=== PATIENT | female | born 1985 | race Caucasian/White ===

== ENCOUNTER 2019-05-10 03:33 | Inpatient (IN) | payer OTHER ==
[~2019-05-10] VITALS: Ht 152.4 cm; Wt 91.2 kg
[2019-05-10] MEDS ORDERED: SODIUM CHLORIDE 0.9% 1,000 ML IV ONE (04:15)
[2019-05-10 04:31] LABS: BASOPHILS % 0.6 % (0.0-2.0); EOSINOPHILS % 0.5 % (0.0-5.0); HEMATOCRIT. 34.8 % (36.0-48.0); HEMOGLOBIN. 10.7 g/dL (12.0-16.0); LYMPHOCYTES % 14.2 % (20.0-50.0); MEAN CORPUSCULAR HEMOGLOBIN 22.3 pg (28.0-32.0); MEAN CORPUSCULAR VOLUME 72.5 fL (81.0-99.0); NEUTROPHILS % 77.7 % (40.0-76.0); PLATELET 582 x1000/uL (130-400); RED CELL DISTRIBUTION WIDTH 19.3 % (11.6-14.6)
[2019-05-10 04:37] LABS: CHLORIDE 109 mEq/L (98-107)
[2019-05-10] MEDS ORDERED: CLONIDINE 0.2MG TABLET PO SCH (04:45)
[2019-05-10] MEDS ORDERED: ASPIRIN 325MG TABLET PO ONE (05:30)
[2019-05-10] MEDS ORDERED: HYDROCODONE/ACETAMINOPHEN 5/325MG TABLET PO ONE (05:30)
[2019-05-10] MEDS ORDERED: IOHEXOL-350 100 ML BOTTLE ONE (05:42)
[2019-05-10] MEDS ORDERED: CLONIDINE 0.1MG TABLET PO PRN (10:15)
[2019-05-10] MEDS ORDERED: GUAIFENESIN 200MG/10ML SUGAR FREE UDC PO PRN (10:15)
[2019-05-10] MEDS ORDERED: LORAZEPAM 0.5MG TABLET PO PRN (10:15)
[2019-05-10] MEDS ORDERED: NA PHOS,M-B/NA PHOS,DI-BA ENEMA 118ML PR PRN (10:15)
[2019-05-10] MEDS ORDERED: ACETAMINOPHEN 650MG SUPP PR PRN (10:15)
[2019-05-10] MEDS ORDERED: DIPHENHYDRAMINE 50MG/ML VIAL IV PRN (10:15)
[2019-05-10] MEDS ORDERED: ACETAMINOPHEN 325MG TABLET PO PRN (10:15)
[2019-05-10] MEDS ORDERED: HYDROCODONE/ACETAMINOPHEN 5/325MG TABLET PO PRN (10:15)
[2019-05-10] MEDS ORDERED: DOCUSATE SODIUM 100MG CAPSULE PO PRN (10:15)
[2019-05-10] MEDS ORDERED: MAGNESIUM/ALUMINUM HYDROXIDE/SIMETHICONE 30ML UDC PO PRN (10:15)
[2019-05-10] MEDS ORDERED: ONDANSETRON HCL 4MG/2ML INJ IV PRN (10:15)
[2019-05-10] MEDS ORDERED: IPRATROPIUM/ALBUTEROL 0.5-3(2.5)MG/3ML NEB NEB PRN (10:15)
[2019-05-10 11:34] LABS: HCG SCREEN NEGATIVE
[2019-05-10] MEDS ORDERED: ENOXAPARIN 40MG/0.4ML SYR SUBCUT SCH (19:00)
[2019-05-10 20:00] VITALS: BP 142/92
[2019-05-10 21:43] LABS: CREATINE KINASE 34 IU/L (26-192)
[2019-05-10 21:44] LABS: CREATINE KINASE MB FRACTION < 1.0 ng/mL (0.5-3.6)
[2019-05-11] VITALS: BP 108/72
[2019-05-11 01:08] LABS: CLARITY URINE CLEAR (CLEAR); COLOR URINE YELLOW (YELLOW); KETONES URINE NEGATIVE (NEGATIVE); LEUKOCYTE ESTERASE URINE NEGATIVE (NEGATIVE); NITRITE URINE NEGATIVE (NEGATIVE); OCCULT BLOOD URINE 3+ (NEGATIVE); PROTEIN URINE NEGATIVE (NEGATIVE); SPECIFIC GRAVITY URINE 1.031 (1.005-1.030); UROBILINOGEN URINE 0.2 E.U./dL (0.2-1.0)
[2019-05-11 01:33] LABS: *AMPHETAMINES SCREEN URINE NEGATIVE (NEGATIVE); CANNABINOID URINE SCREEN NEGATIVE (NEGATIVE); PHENCYCLIDINE URINE SCREEN NEGATIVE (NEGATIVE)
[2019-05-11 01:34] LABS: *BARBITURATES SCREEN URINE NEGATIVE (NEGATIVE); *BENZODIAZEPINES SCREEN URINE NEGATIVE (NEGATIVE); *COCAINE SCREEN URINE NEGATIVE (NEGATIVE); METHADONE URINE SCREEN NEGATIVE (NEGATIVE)
[2019-05-11 01:36] LABS: OPIATES URINE SCREEN PRESUMTIVE POSITIVE (NEGATIVE)
[2019-05-11] MEDS ORDERED: IBUP-2437 MT (01:38)
[2019-05-11] MEDS ORDERED: PRO1 PO (01:38)
[2019-05-11 04:00] VITALS: BP 141/92
[2019-05-11 06:11] LABS: BASOPHILS % 0.7 % (0.0-2.0); HEMATOCRIT. 31.4 % (36.0-48.0); HEMOGLOBIN. 9.8 g/dL (12.0-16.0); LYMPHOCYTES % 20.8 % (20.0-50.0); MEAN CORPUSCULAR HEMOGLOBIN 22.6 pg (28.0-32.0); MEAN PLATELET VOLUME 7.1 fl (7.4-10.4); MONOCYTES % 8.9 % (2.0-8.0); NEUTROPHILS % 68.6 % (40.0-76.0); PLATELET 524 x1000/uL (130-400); RED BLOOD CELL COUNT 4.36 mill/uL (4.2-5.4); RED CELL DISTRIBUTION WIDTH 19.5 % (11.6-14.6)
[2019-05-11 06:45] LABS: CHLORIDE 109 mEq/L (98-107)
[2019-05-11 07:09] LABS: LDL CHOLESTEROL 130 mg/dL (5-100)
[2019-05-11 07:10] LABS: CREATINE KINASE 33 IU/L (26-192)
[2019-05-11 07:12] LABS: HDL CHOLESTEROL 42 mg/dL (40-59); T4 FREE 0.82 ng/dL (0.76-1.46)
[2019-05-11 07:14] LABS: CREATINE KINASE MB FRACTION < 1.0 ng/mL (0.5-3.6)
[2019-05-11 08:00] VITALS: BP 136/93
[2019-05-11] MEDS ORDERED: ASPIRIN 81MG EC TABLET PO SCH (09:00)
[2019-05-11 12:00] VITALS: BP 127/85
[2019-05-11] MEDS ORDERED: AMLO5TAB88 MT (14:29)
[2019-05-11] MEDS ORDERED: LOSARTAN POTASSIUM 25 MG TABLET PO SCH (14:45)
[2019-05-11 16:33] VITALS: BP 127/85
== END 2019-05-11 17:20 | disposition home or self-care (01) | DRG 199 ==
LOC: ER 03:48 → SUPCPDRO 11:47 → ENRESERV 18:02 → 5WST 18:46
PROVIDERS: ADMIT Internal Medicine; ATTEND Internal Medicine
DX: I16.0 Hypertensive urgency (principal); D50.9 Iron deficiency anemia, unspecified; R73.9 Hyperglycemia, unspecified; I47.9 Paroxysmal tachycardia, unspecified; E78.5 Hyperlipidemia, unspecified; I10 Essential (primary) hypertension; E66.9 Obesity, unspecified; E86.0 Dehydration; Z68.39 Body mass index [BMI] 39.0-39.9, adult; Z71.3 Dietary counseling and surveillance
CPT/HCPCS: 36415; 71045; 71275; 80053; 80061; 80305; 81003; 82550; 82553; 83036; 83880; 84439; 84443; 84484; 84703; 85025; 93005; 93306; 93880; 93970; 96360; 99291; J1650; J7030; Q9967